=== PATIENT | male | born 1940 | race Caucasian/White ===

== ENCOUNTER 2020-01-29 12:30 | Emergency (ER) | payer MEDICARE, OTHER ==
[~2020-01-29] VITALS: Ht 177.8 cm; Wt 93.0 kg
[2020-01-29] MEDS ORDERED: DIOVAN HCT 80-1 EACH PO (12:46)
[2020-01-29] MEDS ORDERED: ALLOPURINOL 10100 M1 PO (12:46)
[2020-01-29] MEDS ORDERED: METFORMIN HCL500 MG PO (12:46)
[2020-01-29] MEDS ORDERED: NOVOLOG100 UNIT/1 SUBQ (12:47)
[2020-01-29] MEDS ORDERED: LANTUS SUBQ (12:47)
[2020-01-29] MEDS ORDERED: LIPITOR 20 MG T20 M1 PO (12:47)
[2020-01-29] MEDS ORDERED: SUPER THERAVIT1 EACH PO (12:48)
[2020-01-29] MEDS ORDERED: VITAMIN D310 MC2 PO (12:48)
[2020-01-29] MEDS ORDERED: FLONASE 0.05%50 MCG NARES (12:48)
[2020-01-29] MEDS ORDERED: ASA81BEC PO (12:50)
[2020-01-29] MEDS ORDERED: COQ-10100 MG PO (12:51)
[2020-01-29] MEDS ORDERED: TRELEGY ELLIPT1 EACH (12:51)
[2020-01-29] MEDS ORDERED: XALATAN2.5 ML OPHTHALMIC (12:51)
[2020-01-29] MEDS ORDERED: B-COMPLEX PLUS1 EACH PO (12:52)
[2020-01-29] MEDS ORDERED: VENTOLIN HFA 1818 GM INH (12:52)
[2020-01-29 13:36] LABS: ABSOLUTE BASOPHILS 0.1 thou/uL (0.0-0.2); ABSOLUTE EOSINOPHILS 0.5 thou/uL (0.0-0.7); ABSOLUTE LYMPHOCYTES 2.5 thou/uL (0.8-5.3); ABSOLUTE MONOCYTES 1.2 thou/uL (0.0-1.2); ABSOLUTE NEUTROPHILS 8.5 thou/uL (1.6-8.1); BASOPHILS 0.9 %; EOSINOPHILS 3.7 %; HEMATOCRIT 42.7 % (42.0-52.0); HEMOGLOBIN 14.3 gm/dL (14.0-18.0); LYMPHOCYTES 19.5 %; MCH 31.5 pg (26.0-34.0); MCHC 33.5 g/dL (28.0-37.0); MCV 94.1 fL (80.0-100.0); MONOCYTES 9.1 %; MPV 8.9 fl. (7.2-11.1); NUCLEATED RBCS 0 /100WBC; PLATELET COUNT* 251 thou/uL (150-400); POLYS 66.8 %; RBC 4.54 mil/uL (4.50-6.00); RDW-CV 13.9 % (10.5-14.5); WBC 12.7 thou/uL (4.0-11.0)
[2020-01-29 13:41] LABS: URINE BILIRUBIN NEGATIVE (Negative); URINE BLOOD NEGATIVE (Negative); URINE CLARITY CLEAR; URINE COLOR YELLOW; URINE GLUCOSE-RANDOM 2+ (Negative); URINE KETONES NEGATIVE (Negative); URINE LEUKOCYTES-REFLEX NEGATIVE (Negative); URINE NITRITE-REFLEX NEGATIVE (Negative); URINE PROTEIN NEGATIVE (Negative); URINE SPECIFIC GRAVITY 1.025 (1.005-1.030); URINE UROBILINOGEN 0.2 E.U./dl (0.2-1.0)
[2020-01-29 13:46] LABS: CALCIUM 8.9 mg/dL (8.5-10.1); CREATININE 1.3 mg/dL (0.6-1.3); POTASSIUM 4.5 mmol/L (3.5-5.1)
[2020-01-29 13:52] LABS: ALBUMIN 3.8 g/dL (3.4-5.0); TOTAL BILIRUBIN 0.3 mg/dL (<0.1-1.0); TOTAL PROTEIN 7.5 g/dL (6.4-8.2)
[2020-01-29] MEDS ORDERED: ZANAFLEX4 MG PO (15:19)
[2020-01-29 15:32] VITALS: BP 144/71
== END 2020-01-29 15:32 | disposition home or self-care (01) ==
LOC: M.ERS 12:30
PROVIDERS: Nurse Practitioner Family
DX: S39.011A Strain of muscle, fascia and tendon of abdomen, initial encounter (principal); J44.9 Chronic obstructive pulmonary disease, unspecified; E11.9 Type 2 diabetes mellitus without complications; E78.00 Pure hypercholesterolemia, unspecified; I10 Essential (primary) hypertension; M10.9 Gout, unspecified; Z88.2 Allergy status to sulfonamides; Z79.82 Long term (current) use of aspirin; Z79.899 Other long term (current) drug therapy; X58.XXXA Exposure to other specified factors, initial encounter; Y93.89 Activity, other specified; Y92.89 Other specified places as the place of occurrence of the external cause; Y99.8 Other external cause status